=== PATIENT | female | born 1990 | race African-American/Black ===

== ENCOUNTER 2017-01-13 01:49 | Inpatient (IN) | payer OTHER ==
--- NOTE | ~2017-01-13 | HP ---
Unit #: [id number] #: [id number] Patient: PRAVEEN AWDE [id number] [facility] [address] [place] [address] [id number] I MR#: [id number] NAME: PRAVEEN WADE ROOM: [facility] Age: 26 Sex: F Admission Date: 01/13/2017 : 1990 Attending Physician: Doug Bowles M.D. Admitting Physician: Doug Bowles M.D. Primary Care Physician: Primary Care Physician No HISTORY AND PHYSICAL HISTORY OF PRESENT ILLNESS Praveen is a 26-year-old admitted to [facility] because of her polysubstance abuse which includes benzodiazepines and IV heroin. PAST MEDICAL HISTORY Long history of polysubstance abuse to include benzodiazepines and IV heroin. PAST SURGICAL HISTORY Appendectomy. ALLERGIES No known drug allergies. SOCIAL HISTORY Smokes two packs per day. Denies alcohol. Admits to a long history of polysubstance abuse including benzodiazepines and IV heroin. FAMILY HISTORY Medically noncontributory. REVIEW OF SYSTEMS CONSTITUTIONAL: No fever or chills. HEENT: Denies any sore throat, ear pain or runny nose. CARDIOVASCULAR: Denies chest pain, irregular heart rhythm or palpitations. CHEST: Denies shortness of breath or cough. No hemoptysis. GASTROINTESTINAL: Denies nausea, vomiting, diarrhea or chronic constipation. ENDOCRINE: Denies history of increased thirst or urination. No recent significant weight loss or gain. GENITOURINARY: Denies dysuria, frequency, or hematuria. SKIN: Denies any rashes. HEMATOLOGIC: Denies history of increased bleeding or bruising. MUSCULOSKELETAL: Denies any hot, swollen joints. No generalized muscle pain. NEUROLOGIC: Denies problems with vision or speech. No frequent, severe headaches. No numbness, tingling or weakness in any extremities. Denies loss of bladder or bowel control. CURRENT MEDICATIONS Detox protocol. PHYSICAL EXAMINATION Unit #: [id number] #: [id number] Patient: PRAVEEN WADE GENERAL: Alert, well nourished, in no acute distress. VITAL SIGNS: Blood pressure 100/50, heart rate 52, respirations 16, temperature 98.6, weight 140, height 5 feet 6 inches. SKIN: Warm and dry without rash or lesion. HEENT: Normocephalic. TMs not viewed. Oral and nasal passages clear. Conjunctivae clear. PERRLA. EOMs intact. NECK: Supple without lymphadenopathy or thyromegaly. HEART: Regular rate and rhythm without murmur. LUNGS: Clear. ABDOMEN: Soft, nontender. : Not done. EXTREMITIES: No evidence of cyanosis, clubbing or edema. Moves all without focal deficit. NEUROLOGICAL: Grossly within normal limits. Cranial Nerves: II: Visual bellamy are intact. III, IV AND : Extraocular movements are intact. Pupils are equal, round and reactive to light. V: Facial sensation is grossly normal. VII: Facial movements and expression are normal. VIII: Auditory acuity grossly intact. IX, X: Uvula is midline. Phonation is normal. XI: Patient shrugs shoulders and turns head normally. XII: Tongue protrudes in the midline. Sensory and Motor Function: Sensory and motor sensation is grossly normal. Motor: moves all extremities well. Coordination: Gait is normal. Deep Tendon Reflexes: Intact. IMPRESSION Psychiatric admission. RECOMMENDATIONS PSYCHIATRIC: Per psychiatrist. MEDICAL: I see no contraindication to participating in facility activities. MEDICAL PROGNOSIS Good. MEDICAL CONDITION Stable. Dictated by... Jonathan Noguera/huey TD: 01/13/2017 17:10 JOB #: [id number] Unit #: [id number] #: [id number] Patient: PRAVEEN WADE HISTORY AND PHYSICAL Page 1 of 1 X Sheila Seymour HISTORY AND PHYSICAL
--- NOTE | ~2017-01-13 | DS ---
Unit #: [id number] #: [id number] Patient: PRAVEEN WADE [id number] [facility] [address] [place] [address] [id number] I MR#: [id number] NAME: PRAVEEN WADE ROOM: [facility] Age: 26 Sex: F Admission Date: 01/13/2017 : 1990 Discharge Date: 01/13/2017 Attending Physician: Doug Bowles M.D. Primary Care Physician: Primary Care Physician No DISCHARGE SUMMARY REASON FOR ADMISSION Praveen is a 26-year-old woman with severe chemical dependence issues, who was found overdosed and taken to [facility]. There, she noted the presence of police and feared that she would be arrested, so she states that she claimed to be suicidal and [facility] DIAGNOSTIC STUDIES LABORATORY RESULTS: Please see hospital chart. HOSPITAL COURSE The patient was admitted and placed on the opioid detox protocol. The evening after her first day, she went to the nurses station requesting discharge against medical advice, and again denied suicidal ideation, intent, or plan. She was seen by the nurse manager state and continued to deny suicidal ideation, and stated that she had to "go home and take care of her children." As she lacked criteria for involuntary hospitalization, she was granted discharge at her request. DISCHARGE DIAGNOSES AXIS I: Opioid dependence with withdrawal, uncomplicated, F11.23. AXIS II: Borderline traits. AXIS III: Opioid withdrawal. AXIS IV: AXIS V: DISCHARGE INSTRUCTIONS Follow up with CD programing in the community. DISCHARGE MEDICATIONS None. CONDITION AT DISCHARGE Fair. PROGNOSIS Fair. DIET AND ACTIVITY Ad kathy. Unit #: [id number] #: [id number] Patient: PRAVEEN WADE Dictated by... Doug Bowles M.D. H/sujey TD: 01/19/2017 23:51 JOB #: [id number] DISCHARGE SUMMARY Page 1 of 1 X Doug Bowles MD X DISCHARGE SUMMARY
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
== END 2017-01-13 20:00 | disposition left against medical advice (07) | DRG 894 ==
LOC: P1E 01:49
PROC: HZ2ZZZZ Detoxification Services for Substance Abuse Treatment (ICD-10-PCS; principal; 2017-01-13)
DX: F11.23 Opioid dependence with withdrawal (principal); F13.10 Sedative, hypnotic or anxiolytic abuse, uncomplicated; F17.210 Nicotine dependence, cigarettes, uncomplicated

== ENCOUNTER 2017-03-26 | Inpatient (IN) | payer OTHER ==
--- NOTE | ~2017-03-26 | PN ---
Unit #: [id number] #: [id number] Patient: PRAVEEN WADE [id number] [facility] [address] [place] [address] [id number] I MR#: [id number] NAME: PRAVEEN WADE ROOM: [facility] Age: 27 Sex: F Admission Date: 03/26/2017 : 1990 Attending Physician: Doug Bowles M.D. Admitting Physician: Doug Bowles M.D. Primary Care Physician: Generic Doctor Not In System [facility] PROGRESS NOTES DATE OF SERVICE 03/28/2017 DISCUSSION Praveen is somewhat irritable in her mood this morning and is having ongoing detox symptomatology. She initially requested AMA discharge from the hospital but recanted this and is willing to stay for treatment at this point. She is alert and fully oriented with no psychosis and no SI. ASSESSMENT Opiate dependence withdrawal uncomplicated. PLAN Continue opiate detox protocol Dictated by... Emmett Still/huseyin TD: 03/29/2017 23:13 JOB #: [id number] [facility] PROGRESS NOTES Page 1 of 1 X Doug Bowles MD X PROGRESS NOTE
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
--- NOTE | ~2017-03-26 | PN ---
Unit #: [id number] #: [id number] Patient: PRAVEEN WADE [id number] [facility] [address] [place] [address] [id number] I MR#: [id number] NAME: PRAVEEN WADE ROOM: [facility] Age: 27 Sex: F Admission Date: 03/26/2017 : 1990 Attending Physician: Doug Bowles M.D. Admitting Physician: Doug Bowles M.D. Primary Care Physician: Generic Doctor Not In System [facility] PROGRESS NOTES DATE March 27, [address] Doug Bowles DISCUSSION This patient was seen and evaluated on March 27, 2017. She continues to complain with withdrawal symptoms from heroin which includes body chills, tremors, aches, and abdominal cramping. She is receiving medication appropriate for opiate detox. She is resting in bed. She is encouraged to consume adequate amount of fluids. She will continue inpatient for heroin detox. The patient will meet with her primary psychiatrist tomorrow, Dr. Bowles. I anticipate discharge to the intensive outpatient program within a few days. Dictated by.Harvey Bull/gómez TD: 03/29/2017 10:29 JOB #: [id number] [facility] PROGRESS NOTES Page 1 of 1 X Doreen Salomon PROGRESS NOTE
--- NOTE | ~2017-03-26 | DS ---
Unit #: [id number] #: [id number] Patient: PAULA WADE [id number] [place] [address] [id number] I MR#: [id number] NAME: PAULA WADE ROOM: [facility] Age: 27 Sex: F Admission Date: 03/26/2017 : 1990 Discharge Date: 03/29/2017 Attending Physician: Doug Bowles M.D. DISCHARGE SUMMARY REASON FOR ADMISSION Paula is a 27-year-old woman who came in needing to detox from heroin. She has been homeless occasionally staying with friends and had active withdrawal symptoms. She was admitted for stabilization. DIAGNOSTIC STUDIES LABORATORY RESULTS: Beta-hCG was negative. Other laboratory studies were within normal limits. HOSPITAL COURSE Paula was admitted and placed on the opioid detox protocol. Physical examination was conducted and was unremarkable. She had active detox symptomatology and initially requested AMA discharge, but stated that she was willing to stay for treatment. The following day, she had established sobriety and was once again able to contract for safety. DISCHARGE DIAGNOSES AXIS I: Opioid dependence with withdrawal, uncomplicated, F11.23. AXIS II: No diagnosis. AXIS III: None acute. AXIS IV: AXIS V: DISCHARGE INSTRUCTIONS Follow up with community mental health resources for chemical dependency treatment as arranged by the unit social media community manager. DISCHARGE MEDICATIONS None. CONDITION AT DISCHARGE Improved. PROGNOSIS Good. DIET AND ACTIVITY Per primary care doctor. Dictated by... Doug Bowles M.D. Unit #: [id number] #: [id number] Patient: PAULA WADE MR/modl TD: 03/30/2017 13:03 JOB #: [id number] DISCHARGE SUMMARY Page 1 of 1 X Doug Bowles MD DISCHARGE SUMMARY
--- NOTE | ~2017-03-26 | HP ---
Unit #: [id number] #: [id number] Patient: PRAVEEN WADE [id number] [place] [address] [id number] I MR#: [id number] NAME: PRAVEEN WADE ROOM: [facility] Age: 27 Sex: F Admission Date: 03/26/2017 : 1990 Attending Physician: Doug Bowles M.D. Admitting Physician: Doug Bowles M.D. Primary Care Physician: Generic Doctor Not In System HISTORY AND PHYSICAL HISTORY OF PRESENT ILLNESS The patient is a 27-year-old female admitted to [address] [place] [address] on 03/26/2017 for heroin abuse. PAST MEDICAL HISTORY 1. Polysubstance abuse 2. Nicotine dependence PAST SURGICAL HISTORY Appendectomy SOCIAL HISTORY She is unemployed and homeless. She smokes one pack of cigarettes daily. Uses one to two grams of heroin per day and benzos and cocaine regularly. FAMILY MEDICAL HISTORY Noncontributory. ALLERGIES Latex. CURRENT MEDICATIONS The patient is not on any home medications. REVIEW OF SYSTEMS CONSTITUTIONAL: No fever or chills. HEENT: Denies any sore throat, ear pain or runny nose. CARDIOVASCULAR: Denies chest pain, irregular heart rhythm or palpitations. CHEST: Denies shortness of breath or cough. No hemoptysis. GASTROINTESTINAL: Denies nausea, vomiting, diarrhea or chronic constipation. ENDOCRINE: Denies history of increased thirst or urination. No recent significant weight loss or gain. GENITOURINARY: Denies dysuria, frequency, or hematuria. SKIN: Denies any rashes. HEMATOLOGIC: Denies history of increased bleeding or bruising. MUSCULOSKELETAL: Denies any hot, swollen joints. No generalized muscle pain. NEUROLOGIC: Denies problems with vision or speech. No frequent, severe headaches. No numbness, tingling or weakness in any extremities. Denies loss of bladder or bowel control. PHYSICAL EXAM Unit #: [id number] #: [id number] Patient: PRAVEEN WADE GENERAL: She is awake, alert and oriented in no acute distress. VITAL SIGNS: Temperature 97.7, heart rate 117, respiration 18, blood pressure 147/100. HEIGHT: 5'6". WEIGHT: 140 pounds. SKIN: Warm and dry without rash or lesion. HEENT: Normocephalic. TMs not viewed. Oral and nasal passages clear. Conjunctivae clear. PERRLA. EOMs intact. NECK: Supple without lymphadenopathy or thyromegaly. HEART: Regular rate and rhythm without murmur. LUNGS: Clear. ABDOMEN: Soft, nontender. : Not done. EXTREMITIES: No evidence of cyanosis, clubbing or edema. Moves all without focal deficit. NEUROLOGICAL: Grossly within normal limits. Cranial Nerves: II: Visual bellamy are intact. III, IV AND : Extraocular movements are intact. Pupils are equal, round and reactive to light. V: Facial sensation is grossly normal. VII: Facial movements and expression are normal. VIII: Auditory acuity grossly intact. IX, X: Uvula is midline. Phonation is normal. XI: Patient shrugs shoulders and turns head normally. XII: Tongue protrudes in the midline. Sensory and Motor Function: Sensory and motor sensation is grossly normal. Motor: moves all extremities well. IMPRESSION 1. Psychiatric admission. 2. Polysubstance abuse. 3. Nicotine dependence. RECOMMENDATIONS Psychiatric per psychiatrist. MEDICAL: No contraindication to participate in facility activities. MEDICAL PROGNOSIS Good. MEDICAL CONDITION Stable. Dictated by... Harvey Acuna/huseyin TD: 03/28/2017 03:19 JOB #: [id number] Unit #: [id number] #: [id number] Patient: PRAVEEN WADE HISTORY AND PHYSICAL Page 1 of 1 X SAIDA BARBER APRN HISTORY AND PHYSICAL
[2017-03-27 12:17] LABS: ALBUMIN SERUM 4.2 g/dL (3.5-5.0); BILIRUBIN,TOTAL 1.1 mg/dL (0.2-2.0); CALCIUM SERUM 9.9 mg/dL (8.4-10.2); CREATININE SERUM 0.9 mg/dL (0.6-1.4); GLOM FILT RATE Estimated 102.3 mL/min (>60); PROTEIN TOTAL SERUM 7.7 g/dL (6.0-8.3)
[2017-03-28 09:37] LABS: URINE APPEARANCE CLOUDY; URINE BILIRUBIN NEG (NEG); URINE BLOOD NEG (NEG); URINE COLOR DK YELLOW; URINE GLUCOSE NEG (NEG); URINE KETONE TRACE (NEG); URINE LEUKOCYTE ESTERASE TRACE (NEG); URINE NITRATE NEG (NEG); URINE PROTEIN NEG (NEG)
[2017-03-28 09:41] LABS: URBCS1 AUWI 0-2 /[HPF] (0-2); URINE SQUAMOUS EPITHELIAL CELL MOD /[HPF]
[2017-03-28 10:18] LABS: URINE CRYSTALS CALCIUM OXALATE /[HPF]; URINE MUCUS PRESENT
[2017-03-28 10:19] LABS: URINE BACTERIA AUWI 1+ (NEGATIVE)
[2017-03-28 10:23] LABS: AMPHETAMINE POS (NEG); BARBITURATES NEG (NEG); BENZODIAZEPINES NEG (NEG); COCAINE POS (NEG); MARIJUANA NEG (NEG); OPIATES POS (NEG); TRICYCLIC ANTIDEPRESSANTS NEG (NEG); U METHADONE NEG (NEG)
== END 2017-03-29 11:10 | disposition home or self-care (01) | DRG 897 ==
LOC: P2S 03:59
PROVIDERS: Psychiatry & Neurology Psychiatry
PROC: HZ2ZZZZ Detoxification Services for Substance Abuse Treatment (ICD-10-PCS; principal; 2017-03-26)
DX: F11.23 Opioid dependence with withdrawal (principal); F17.210 Nicotine dependence, cigarettes, uncomplicated; Z56.0 Unemployment, unspecified; Z59.0 Homelessness
CPT/HCPCS: 80053; 80307; 81003; 84703